=== PATIENT | female | born 1985 | race Caucasian/White ===

== ENCOUNTER 2019-12-26 11:14 | Outpatient (REF) | payer OTHER, SELFPAY | END 2019-12-26 11:15 | disposition home or self-care (01) | LOC: HO.LAB 11:14 | PROVIDERS: PCP Student in an Organized Health Care Education/Training Program; Visit Provider Internal Medicine | DX: Z20.828 Contact with and (suspected) exposure to other viral communicable diseases (principal) | CPT/HCPCS: 87635 ==

== ENCOUNTER 2020-06-18 13:00 | Emergency (ER) | payer MEDICAID, SELFPAY ==
--- NOTE | ~2020-06-18 | XR_ITS ---
EXAMINATION: XR CHEST CLINICAL INFORMATION: Shortness of breath; chest tightness COMPARISON: Chest radiographs 11/20/2018, 10/03/2017 TECHNIQUE: 2 views of the chest were obtained. FINDINGS: The lungs are clear. There is no airspace consolidation, pneumothorax, pleural reaction, or effusion. The costophrenic sulci are clear. The heart is normal in size. The vascularity is normal. The hilar and mediastinal contours and visualized bony structures are unremarkable. XR/XR chest 2V IMPRESSION: Unremarkable examination.
--- NOTE | 2020-06-18 13:30 | ED.GENADULT ---
HPI - General Adult General Stated complaint: anxiety Time Seen by Provider: 06/18/20 13:30 Related Data Allergies Allergy/AdvReac Type Severity Reaction Status Date / Time From VICODIN Allergy Mild RASH Uncoded 11/14/19 15:29 GRAPE SODA Allergy Unknown FACIAL Uncoded 11/14/19 15:29 SWELLING Course Course Course Narrative: 1330-This is a rapid medical exam. 34 yo female here with dry cough x 1 week, chest tightness, shortness of breath. Tested last week twice negative for COVID 19. HD stable. Deferred additional HPI, ROS, PE to primary provider.
[2020-06-18 13:31] VITALS: BP 163/89; PULSE 90; RESP 18; TEMP 36.5; O2SAT 98; BMI 28.3
--- NOTE | 2020-06-18 16:31 | PC.NURSE ---
DR HAWLEY CANCELING EKG.
--- NOTE | 2020-06-18 16:32 | ED_ITS ---
HPI - URI/Sore Throat General Chief Complaint: Upper Respiratory Symptoms Stated Complaint: anxiety Time Seen by Provider: 06/18/20 13:30 Source: patient Mode of arrival: ambulatory Limitations: no limitations History of Present Illness HPI Narrative: 34-year-old female presented for evaluation of cough for 1 week. 34-year-old female came in for evaluation productive cough for the past week, with mild difficulty breathing, patient had the COVID infection 4 months ago and had a recent negative testing last week, complaining of chest tightness with wheezing and difficulty breathing with productive cough of yellow sputum. Patient is smoker. No sick contact. Related Data Previous Rx's Medication Instructions Recorded albuterol sulfate [ProAir HFA] 1 inh INHALATION QID PRN #8.5 g 06/18/20 azithromycin [Zithromax Z-Osman] See Rx Instructions .ROUTE 06/18/20 .COMPLEX #6 tab prednisone 20 mg PO BID #10 tab 06/18/20 Allergies Allergy/AdvReac Type Severity Reaction Status Date / Time From VICODIN Allergy Mild RASH Uncoded 11/14/19 15:29 GRAPE SODA Allergy Unknown FACIAL Uncoded 11/14/19 15:29 SWELLING Review of Systems Review of Systems: All other systems are reviewed and are negative Constitutional: Reports as per HPI and Reports no additional constitutional complaints Eyes: Reports as per HPI and Reports no additional eye complaints Reports system reviewed and no additional complaints, except as documented Cardiovascular: Reports as per HPI and Reports no additional cardiovascular complaints Respiratory: Reports as per HPI and Reports no additional respiratory complaints Gastrointestinal: Reports as per HPI and Reports no additional gastrointestinal complaints Genitourinary: Reports no additional female genitourinary complaints Musculoskeletal: Reports no additional musculoskeletal complaints Skin/Breast: Reports system reviewed and no additional complaints, except as docu Psychiatric: Reports no additional psychiatric complaints Endocrine: Reports no additional endocrine complaints Hematologic/Lymphatic: Reports no additional hematologic/lymphatic complaints Allergic/Immunologic: Reports no additional allergic/immunologic complaints Reports system reviewed and no additional complaints, except as documented and Reports Abnormal speech present [facility] Past Medical History Medical History Anxiety Ectopic HTN (hypertension) Social History Social History Advance Directives: No Advance Directives Information Provided: No Physical Exam Vital Signs: Vital Signs: Last Vital Signs Temp 97.7 F 06/18/20 13:31 Pulse 90 06/18/20 13:31 Resp 18 06/18/20 13:31 BP 163/89 H 06/18/20 13:31 Pulse Ox 98 06/18/20 13:31 Body Mass Index 28.3 Vital signs have been reviewed as appeared to be correct. Blood pressure elevated. Heart rate normal. Respiration rate normal. Temperature normal. Oxygen saturation normal. Appearance: Alert. Oriented X3. No acute distress. Head: Normal external exam. Normocephalic. Atraumatic. No Guzman signs noted. No raccoon eyes noted Eyes: PERRLA. EOMI. Conjunctiva and sclera normal. Eyelids normal. ENT: TM's Normal. Pharynx normal. Uvula midline. Moist mucous membranes. No trismus noted. No drooling noted. No muffled voice noted. Neck: Normal inspection. Neck supple. FROM. No adenopathy. Thyroid Normal. No meningeal signs. No neck mass noted. CVS: Normal heart rate and rhythm. Heart sound normal. No murmurs noted. Pulses normal throughout. Respiratory: No respiratory distress. Painless inspiration. Breath sounds normal. Diffuse expiratory wheezes, no rales, or rhonchi noted. Chest nontender. No accessory muscle usage noted or decreased air movement noted. Abdomen: Soft and nontender. Bowel sounds normal in all 4 quadrants. No distention noted. No organomegaly noted. No visible injury noted. Back: No CVA tenderness. Full range of motion noted. Skin: Skin warm and dry. Normal skin color. Normal skin turgor. No rashes/lesions/lacerations noted. Extremities: No lower extremity edema. Extremities exhibit normal range of motion. Extremities nontender. Neuro: Oriented X 3. No motor deficit. No sensory deficit. Reflexes normal. Course Course Course Narrative: Assessment and plan. 34-year-old female smoker who presented with 7 days of coughing and wheezing. Exam and chest x-ray are suggesting acute bronchitis. Will start patient on a Zithromax, prednisone, bronchodilator. MDM - URI/Sore Throat Imaging Data Chest x-ray: Radiologist's impression: No acute pathology. Discharge Plan Discharge Clinical Impression: Bronchitis Patient Disposition: Home, Self-Care Instructions: Acute Bronchitis (ED) Prescriptions: New prednisone 20 mg tablet 20 mg PO BID Qty: 10 RF: 0 azithromycin [Zithromax Z-Osman] 250 mg tablet See Rx Instructions .ROUTE .COMPLEX Qty: 6 RF: 0 albuterol sulfate [ProAir HFA] 90 mcg/actuation HFA aerosol inhaler 1 inh inhalation QID PRN (Reason: shortness of breath or wheezing) Qty: 8.5 RF: 0 Referrals: Jeannie Figueredo MD [Primary Care Provider] - 2 days
[2020-06-18 17:05] LABS: COVID-19 Test Negative (Negative); IDNOW Serial# 9DD0AD1C
[2020-06-18] MEDS: predniSONE 20 MG TABLET 40 MG PO (17:12)
== END 2020-06-18 17:20 | disposition home or self-care (01) ==
PROVIDERS: Emergency Provider Emergency Medicine; PCP Student in an Organized Health Care Education/Training Program
DX: J20.8 Acute bronchitis due to other specified organisms (principal); R06.02 Shortness of breath; R05 Cough; F41.1 Generalized anxiety disorder; F43.0 Acute stress reaction; I10 Essential (primary) hypertension; Z20.822 Contact with and (suspected) exposure to COVID-19; Z79.899 Other long term (current) drug therapy
CPT/HCPCS: 36415; 71046; 87635; 99283

== ENCOUNTER 2020-10-21 11:45 | Outpatient (REF) | payer MEDICAID, SELFPAY ==
[2020-10-21 12:20] LABS: COVID-19 Test Negative (Negative)
== END 2020-10-21 11:46 | disposition home or self-care (01) ==
LOC: HO.LAB 11:45
PROVIDERS: PCP Student in an Organized Health Care Education/Training Program; Visit Provider Internal Medicine
DX: Z20.822 Contact with and (suspected) exposure to COVID-19 (principal)
CPT/HCPCS: 36415; 87635; C9803

== ENCOUNTER 2020-12-06 11:47 | Emergency (ER) | payer MEDICAID, SELFPAY ==
[2020-12-06 12:39] VITALS: BP 132/86; PULSE 85; RESP 16; TEMP 36.3; O2SAT 98; BMI 29.0
--- NOTE | 2020-12-06 13:25 | ED.EAR ---
HPI - Ear Problem General Chief complaint: Ear Problems Stated complaint: headache Source: patient Mode of arrival: ambulatory Limitations: no limitations History of Present Illness HPI Narrative: Patient presents to ED for left ear pain and also wooshing pounding sound in left ear. Patient denies any recent head trauma, nausea, vomiting, blurry vision, eye pain, bleeding from ear, ear discharge, or any other concerning symptoms. MD Complaint: ear pain Related Data Previous Rx's Medication Instructions Recorded albuterol sulfate 90 mcg/actuation 1 inh INHALATION QID PRN #8.5 g 06/18/20 aerosol inhaler (ProAir HFA) azithromycin 250 mg tablet See Rx Instructions .ROUTE 06/18/20 (Zithromax Z-Osman) .COMPLEX #6 tab prednisone 20 mg tablet 20 mg PO BID #10 tab 06/18/20 amoxicillin 875 mg-potassium 1 tab PO Q12H 10 Days #20 tab 12/06/20 clavulanate 125 mg tablet (Augmentin) naproxen 500 mg tablet 500 mg PO BID PRN #20 tab 12/06/20 Allergies Allergy/AdvReac Type Severity Reaction Status Date / Time From VICODIN Allergy Mild RASH Uncoded 12/06/20 12:43 GRAPE SODA Allergy Unknown FACIAL Uncoded 12/06/20 12:43 SWELLING Review of Systems Review of Systems: Yes all other systems are reviewed and are negative Constitutional: Constitutional: Reports as per HPI and Reports no additional constitutional complaints Eyes: Eyes: Reports as per HPI and Reports no additional eye complaints ENT: Reports system reviewed and no additional complaints, except as documented, Reports as per HPI and Reports otalgia Cardiovascular: Cardiovascular: Reports as per HPI and Reports no additional cardiovascular complaints Respiratory: Respiratory: Reports as per HPI and Reports no additional respiratory complaints Gastrointestinal: Gastrointestinal: Reports as per HPI and Reports no additional gastrointestinal complaints Genitourinary: Genitourinary: Reports no additional female genitourinary complaints and Reports as per HPI Musculoskeletal: Musculoskeletal: Reports no additional musculoskeletal complaints and Reports as per HPI Neurologic: Reports system reviewed and no additional complaints, except as documented and Reports as per HPI Psychiatric: Psychiatric: Reports no additional psychiatric complaints and Reports as per HPI PMFSH Past Medical History Medical History Anxiety Ectopic HTN (hypertension) Social History Social History Advance Directives: No Advance Directives Information Provided: No Patient : No Physical Exam Vital Signs: Vital Signs: Last Vital Signs Temp 97.4 F 12/06/20 12:39 Pulse 70 12/06/20 13:47 Resp 18 12/06/20 13:47 BP 132/86 12/06/20 12:39 Pulse Ox 98 12/06/20 12:39 Body Mass Index 29.0 Const: General: cooperative, healthy appearing, comfortable, no acute distress, well developed, alert, awake and Physically active Orientation/consciousness: patient oriented x3 HENMT: Head: Yes normal to inspection, Yes No palpable skull fracture present, Yes normocephalic, Yes atraumatic and No abrasion Ears: hearing grossly normal bilaterally, external ears normal and TM abnormal (left ear) bulging Eyes: General: appearance normal, both eyes and all related structures Neck: Neck: Yes normal visual inspection, Yes full ROM, Yes no lymphadenopathy, Yes no meningeal signs, Yes trachea midline, Yes supple and No tender Chest: Chest palpation & inspection: normal inspection of the chest and normal palpation of entire chest wall Resp: Effort & Inspection: normal respiratory effort and able to speak in complete sentences Auscultation: clear to auscultation bilaterally Cardio: Jugular venous distension: no JVD Heart sounds: S1 normal heart sound present and S2 normal heart sound present GI: Inspection: Yes normal to inspection and No abdominal wall ecchymosis Palpation (GI): Soft to palpation, not firm, nontender, no guarding and not rigid : General: No CVA tenderness and Yes no CVA tenderness Back/Spine/Pelvis: Back: no CVA tenderness, No CVA tenderness and No back tenderness Skin: General skin exam: no rashes or lesions noted and elasticity normal Neuro: General: patient oriented x3, gait normal, no meningeal signs and CN's II-XI intact bilaterally Cranial nerves: Yes CN's II-XII intact bilaterally Extrem: General: Yes normal to inspection and Yes full ROM Psych: Appearance: grossly normal, well kempt and not disheveled Course Course Course Narrative: Evaluation for Reevaluation(s) Reevaluation #1: Patient will be discharged with antibiotic and NSAIDs. Patient informed to follow-up with ENT. Time: 13:34 MDM - Ear MDM Narrative Medical decision making narrative: Otitis media. Middle ear effusion Discharge Plan Discharge Clinical Impression: Otitis media, TASHA (middle ear effusion) Patient Disposition: Home, Self-Care Instructions: Ear Infection (ED), Serous Otitis Media (ED) Additional Instructions: History and physical exam indicate middle ear effusion most likely caused by infection. You need to follow-up with ENT specialist. Return to the ED for worsening ear pain, ear drainage, severe headache, eye pain, blurry vision, loss of vision, nausea, vomiting, headache, fever, chills, neck pain, swelling or redness behind our front of the ear, or any other concerning symptoms. Prescriptions: New amoxicillin-pot clavulanate [Augmentin] 875-125 mg tablet 1 tab PO Q12H 10 Days Qty: 20 RF: 0 naproxen 500 mg tablet 500 mg PO BID PRN (Reason: pain) Qty: 20 RF: 0 No Action prednisone 20 mg tablet 20 mg PO BID Qty: 10 RF: 0 azithromycin [Zithromax Z-Osman] 250 mg tablet See Rx Instructions .ROUTE .COMPLEX Qty: 6 RF: 0 albuterol sulfate [ProAir HFA] 90 mcg/actuation HFA aerosol inhaler 1 inh inhalation QID PRN (Reason: shortness of breath or wheezing) Qty: 8.5 RF: 0 Referrals: Richie Ugarte [Physician] - 2 days Stand Alone Forms: Work/School Release Interventions: ED Discharge Assessment Last Done: 12/06/20 14:09 Discharge Date/Time: 12/06/20 14:10 Print Language: Arabic
[2020-12-06] MEDS: Ibuprofen 800 MG TABLET PO (13:46)
[2020-12-06 13:47] VITALS: PULSE 70; RESP 18
--- NOTE | 2020-12-06 14:06 | PC.NURSE ---
PT EVALUATED BY PA. PT AWAKE, ALERT AND ORIENTED X 3. SKIN WARM AND DRY. RESP UNLABORED. DENIES N/V. C/O EAR PAIN. AIRWAY PATENT, MANAGING SECRETIONS, NO ACUTE DISTRESS NOTED. PLAN IS FOR DC HOME AND PATIENT AGREEABLE
== END 2020-12-06 14:10 | disposition home or self-care (01) ==
PROVIDERS: Emergency Provider Emergency Medicine; PCP Student in an Organized Health Care Education/Training Program
DX: H66.92 Otitis media, unspecified, left ear (principal); H74.8X2 Other specified disorders of left middle ear and mastoid; I10 Essential (primary) hypertension
CPT/HCPCS: 99283

== ENCOUNTER 2021-06-07 13:10 | Emergency (ER) | payer MEDICAID, SELFPAY ==
--- NOTE | ~2021-06-07 | XR_ITS ---
EXAMINATION: XR CHEST CLINICAL INFORMATION: Chest pain COMPARISON: Previous x-ray May 2020 TECHNIQUE: Frontal view of the chest was obtained. FINDINGS: No significant abnormality is noted involving the heart, lungs, mediastinum, bony thorax or soft tissues. XR/XR chest 1V IMPRESSION: Unremarkable examination.
--- NOTE | 2021-06-07 13:15 | ECG_ITS ---
Test Reason : CP Blood Pressure : / mmHG Vent. Rate : 091 BPM Atrial Rate : 091 BPM P-R Int : 134 ms QRS Dur : 092 ms QT Int : 384 ms P-R-T Axes : 031 -05 014 degrees QTc Int : 472 ms Normal sinus rhythm Moderate voltage criteria for LVH, may be normal variant ( R in aVL , [place] product ) Borderline ECG When compared with ECG of 20-NOV-2018 03:06, No significant change was found Referred By: Generic ED Physician Electronically Signed By:Zander Stubbs
[2021-06-07 13:51] VITALS: BP 135/96; PULSE 79; RESP 16; TEMP 36; O2SAT 100; BMI 28.3
[2021-06-07 14:11] LABS: MANUAL DIFF FLAG NO
[2021-06-07 14:15] LABS: Basophils Percent Auto 0.3 % (0-2); Eosinophils Absolute Auto 0.2 X10*3/uL (0.0-0.4); Eosinophils Percent Auto 2.3 % (0-4); Hematocrit 33.7 % (37.0-47.0); Hemoglobin 10.4 g/dl (12.0-16.0); Imm Gran Abs Auto 0.03 X10*3/uL (0.00-0.03); Imm Gran Pct Auto 0.4 % (0.0-0.4); Lymphocytes Absolute Auto 2.7 X10*3/uL (1.2-4.9); Lymphocytes Percent Auto 36.6 % (20-40); Mean Corpuscular HGB Conc 30.9 g/dl (31.0-35.0); Mean Corpuscular Hemoglobin 23.6 pg (27.0-33.0); Mean Corpuscular Volume 76.4 fL (80.0-98.0); Mean Platelet Volume 9.5 fL (9.4-12.3); Monocytes Absolute Auto 0.5 X10*3/uL (0.1-1.2); Monocytes Percent Auto 6.5 % (2-11); Neutrophils Absolute Auto 3.9 x10*3/uL (2.0-8.3); Neutrophils Percent Auto 53.9 % (45-73); Platelet Count 436 X10*3/uL (160-400); Red Blood Count 4.41 X10*6/uL (4.20-5.50); Red Cell Distribution Width 15.8 % (11.0-16.0); White Blood Count 7.3 X10*3/uL (4.8-10.8)
[2021-06-07 14:28] LABS: Anion Gap 11 (12-20); Blood Urea Nitrogen 11 mg/dL (9-16); Calcium 9.9 mg/dL (8.4-10.2); Carbon Dioxide 27 mmol/L (22-29); Chloride 105 mmol/L (96-108); Creatinine Clr Calc Pharmacy 96.6; Estimated Glomerular Filt Rate > 60; Glucose Random 88 mg/dL (60-115); Potassium 3.8 mmol/L (3.3-5.1); Sodium 139 mmol/L (135-145)
[2021-06-07 14:35] LABS: Troponin-I High Sensitivity 7.6 ng/L (<3.5-17.0)
--- NOTE | 2021-06-07 16:20 | ED_ITS ---
HPI - Chest Pain General Chief Complaint: Chest Pain Stated Complaint: chest pain Time Seen by Provider: 06/07/21 15:05 Source: patient Mode of arrival: ambulatory Limitations: no limitations History of Present Illness HPI narrative: Patient no known coronary artery disease history of hypertension works in double shifts since yesterday evening noticed pain the mid chest the neck the left shoulder increases on palpation and movements of her arms no diaphoresis no nausea no palpitation pain is dull aching pain patient has not received COVID vaccine no cold symptoms complaining of body aches Related Data Previous Rx's Medication Instructions Recorded albuterol sulfate 90 mcg/actuation 1 inh INHALATION QID PRN #8.5 g 06/18/20 aerosol inhaler (ProAir HFA) azithromycin 250 mg tablet See Rx Instructions .ROUTE 06/18/20 (Zithromax Z-Osman) .COMPLEX #6 tab prednisone 20 mg tablet 20 mg PO BID #10 tab 06/18/20 amoxicillin 875 mg-potassium 1 tab PO Q12H 10 Days #20 tab 12/06/20 clavulanate 125 mg tablet (Augmentin) naproxen 500 mg tablet 500 mg PO BID PRN #20 tab 12/06/20 Allergies Allergy/AdvReac Type Severity Reaction Status Date / Time From VICODIN Allergy Mild RASH Uncoded 12/06/20 12:43 GRAPE SODA Allergy Unknown FACIAL Uncoded 12/06/20 12:43 SWELLING Review of Systems Review of Systems: Yes all other systems are reviewed and are negative [facility] Past Medical History Medical History Anxiety Ectopic HTN (hypertension) Social History Social History Advance Directives: No Advance Directives Information Provided: No Patient : No Physical Exam Vital Signs: Vital Signs: Last Vital Signs Temp 98.5 F 06/07/21 16:43 Pulse 68 06/07/21 16:43 Resp 15 06/07/21 16:43 BP 123/80 06/07/21 16:43 Pulse Ox 98 06/07/21 16:43 BMI result Body Mass Index 28.3 Appearance: Alert. Oriented X3. No acute distress. ENT: Pharynx normal. Oral Mucosa moist Neck: Normal inspection. Neck supple. CVS: Normal heart rate and rhythm. Pulses normal. Respiratory: No respiratory distress. Equal air entry bilateral, no wheezing/rales/rhonchi diffuse muscular tenderness left side of the neck and mid chest Abdomen: Soft and nontender. Bowel sounds are present, no mass palpable, no CVA tenderness Skin: Skin warm and dry. Normal skin color. Normal skin turgor. Extremities: No lower extremity edema. No calf tenderness Neuro: Oriented X 3. MDM - Chest Pain MDM Narrative Medical decision making narrative: Patient with atypical chest pain and since yesterday worse on movement and palpation likely musculoskeletal pain without any ischemic change no history of coronary artery disease heart score of 1 vital stable will discharge patient home advised to follow with PCP Lab Data Attestation: I reviewed the patient's lab results. Result diagrams: 06/07/21 14:05 06/07/21 14:05 Labs: Lab Results 06/07/21 06/07/21 06/07/21 Range/Units 14:05 14:05 14:05 WBC 7.3 (4.8-10.8) X10*3/uL RBC 4.41 (4.20-5.50) X10*6/uL Hgb 10.4 L (12.0-16.0) g/dl Hct 33.7 L (37.0-47.0) % MCV 76.4 L (80.0-98.0) fL MCH 23.6 L (27.0-33.0) pg MCHC 30.9 L (31.0-35.0) g/dl RDW 15.8 (11.0-16.0) % Plt Count 436 H (160-400) X10*3/uL MPV 9.5 (9.4-12.3) fL Immature Gran % (Auto) 0.4 (0.0-0.4) % Neut % (Auto) 53.9 (45-73) % Lymph % (Auto) 36.6 (20-40) % Treasure % (Auto) 6.5 (2-11) % Eos % (Auto) 2.3 (0-4) % Baso % (Auto) 0.3 (0-2) % Lymph # (Auto) 2.7 (1.2-4.9) X10*3/uL Treasure # (Auto) 0.5 (0.1-1.2) X10*3/uL Eos # (Auto) 0.2 (0.0-0.4) X10*3/uL Baso # (Auto) 0.0 (0.0-0.2) X10*3/uL Abs Immat Gran (auto) 0.03 (0.00-0.03) X10*3/uL Absolute Neuts (auto) 3.9 (2.0-8.3) x10*3/uL Absolute Nucleated RBC 0.000 (0.0-0.012) X10*3/uL Nucleated RBC % (auto) 0.0 (0.0-0.2) /100WBC Sodium 139 (135-145) mmol/L Potassium 3.8 (3.3-5.1) mmol/L Chloride 105 (96-108) mmol/L Carbon Dioxide 27 (22-29) mmol/L Anion Gap 11 L (12-20) BUN 11 (9-16) mg/dL Creatinine 0.79 (0.5-1.4) mg/dL Estim Creat Clear Calc 96.6 Estimated GFR > 60 Random Glucose 88 (60-115) mg/dL Calcium 9.9 (8.4-10.2) mg/dL Troponin I High Sens 7.6 (<3.5-17.0) ng/L Scores Heart Score History: -0- slightly suspicious ECG: -0- normal Age: -0- < or = 45 Risk factory: -1- 1 or 2 risk factors Troponin: -0- < or = normal limit Score: 1 Risk: 1.7% Discharge Plan Discharge Clinical Impression: Chest pain Patient Disposition: Home, Self-Care Instructions: Chest Pain (ED) Additional Instructions: Likely have musculoskeletal chest pain Take ibuprofen for pain Follow with PCP if chest pain continues Prescriptions: No Action prednisone 20 mg tablet 20 mg PO BID Qty: 10 0RF azithromycin [Zithromax Z-Osman] 250 mg tablet See Rx Instructions .ROUTE .COMPLEX Qty: 6 0RF Rx Instructions: take 500 mg today (day 1), then 250 mg for 4 days (days 2-5) albuterol sulfate [ProAir HFA] 90 mcg/actuation HFA aerosol inhaler 1 inh inhalation QID PRN (Reason: shortness of breath or wheezing) Qty: 8.5 0RF amoxicillin-pot clavulanate [Augmentin] 875-125 mg tablet 1 tab PO Q12H 10 Days Qty: 20 0RF naproxen 500 mg tablet 500 mg PO BID PRN (Reason: pain) Qty: 20 0RF
[2021-06-07 16:43] VITALS: BP 123/80; PULSE 68; RESP 15; TEMP 36.9; O2SAT 98
[2021-06-07] MEDS: Ibuprofen 600 MG TABLET PO (16:51)
[2021-06-07 17:07] LABS: IDNOW Serial# 16C4AD1C
[2021-06-07 17:08] LABS: COVID-19 Test Negative (Negative)
== END 2021-06-07 17:10 | disposition home or self-care (01) ==
PROVIDERS: Emergency Provider Internal Medicine; PCP Student in an Organized Health Care Education/Training Program
DX: R07.9 Chest pain, unspecified (principal); Z20.822 Contact with and (suspected) exposure to COVID-19; I10 Essential (primary) hypertension; F41.9 Anxiety disorder, unspecified; Z79.899 Other long term (current) drug therapy
CPT/HCPCS: 36415; 71045; 80048; 84484; 85025; 87635; 93005; 99283; 99284

== ENCOUNTER 2021-12-16 07:02 | Emergency (ER) | payer MEDICAID, SELFPAY ==
[2021-12-16 07:59] LABS: Strep A Nucleic Acid Negative (Negative)
[2021-12-16 08:08] VITALS: BP 123/73; PULSE 74; RESP 18; TEMP 37.1; O2SAT 99; BMI 28.4
[2021-12-16 09:14] LABS: Influenza A PCR NEGATIVE (Negative); Influenza B PCR NEGATIVE (Negative); Resp Syncy Virus RNA Qual PCR NEGATIVE (Negative); SARS COV2 PCR INHOUSE NEGATIVE (Negative)
--- NOTE | 2021-12-16 09:33 | ED.URI ---
HPI - URI/Sore Throat General Chief Complaint: Ear Problems Stated Complaint: Sore Throat Ear Pain Time Seen by Provider: 12/16/21 08:19 Source: patient Mode of arrival: ambulatory Limitations: no limitations History of Present Illness HPI Narrative: Patient presents emergency department for evaluation of sore throat and left ear pain. Onset of symptoms was yesterday. Described as constant and aching. Reports that she typically gets this at least once a year. Which response to antibiotics. Denies associated fevers, chills, nasal congestion, cough, shortness of breath, difficulty breathing, chest pain, palpitations. Denies any known sick contacts. Related Data Previous Rx's Medication Instructions Recorded albuterol sulfate 90 mcg/actuation 1 inh inhalation QID PRN shortness 06/18/20 aerosol inhaler (ProAir HFA) of breath or wheezing #8.5 grams azithromycin 250 mg tablet See Rx Instructions PO .COMPLEX #6 06/18/20 (Zithromax Z-Osman) tabs prednisone 20 mg tablet 20 mg PO BID #10 tabs 06/18/20 amoxicillin 875 mg-potassium 1 tab PO Q12H 10 days #20 tabs 12/06/20 clavulanate 125 mg tablet (Augmentin) naproxen 500 mg tablet 500 mg PO BID PRN pain #20 tabs 12/06/20 amoxicillin 500 mg tablet 500 mg PO Q12H 10 days #20 tabs 12/16/21 Allergies Allergy/AdvReac Type Severity Reaction Status Date / Time From VICODIN Allergy Mild RASH Uncoded 12/06/20 12:43 GRAPE SODA Allergy Unknown FACIAL Uncoded 12/06/20 12:43 SWELLING Review of Systems Review of Systems: Constitutional: No fever. No chills. No weakness. Positive fatigue. ENT/ Mouth: Positive Ear Pain, no Nasal Congestion, positive sore throat, No Rhinorrhea, No Swallowing Difficulty Skin: No rash or itching. Cardiovascular: No chest pain. No palpitations. Respiratory: No shortness of breath. Positive cough. No sputum production. Gastrointestinal: No nausea. No vomiting. No diarrhea. No abdominal pain. Genitourinary: No burning micturition. No urinary frequency. Neurologic: No headache. No dizziness. No syncope. No numbness or tingling in the extremities. Musculoskeletal: No muscle pain. No back pain. No joint pain or stiffness. Yes all other systems are reviewed and are negative [facility] Past Medical History Attestation statement: The following information was validated with the patient. Source: old records reviewed Medical History Anxiety Ectopic HTN (hypertension) Social History Social History Advance Directives: No Advance Directives Information Provided: No Physical Exam Vital Signs: Vital Signs: Last Vital Signs Temp 98.7 F 12/16/21 08:08 Pulse 74 12/16/21 08:08 Resp 18 12/16/21 08:08 BP 123/73 12/16/21 08:08 Pulse Ox 99 12/16/21 08:08 O2 Del Method 12/16/21 08:08 BMI result Body Mass Index 28.4 Vital signs have been reviewed as normal and appeared to be correct. Blood pressure normal.? Heart rate normal.? Respiration rate normal. Temperature normal.? Oxygen saturation normal. Appearance: Alert.?Oriented to person, place and time. No acute distress.?Normal affect. Eyes: Pupils equal, round and reactive to light.? ENT: TM normal bilaterally. Pharynx with erythema, no exudate, tonsillar hypertrophy bilaterally? Neck: Normal inspection.? Neck supple.??Positive cervical adenopathy CVS: Heart sounds normal. Normal heart rate and rhythm.? Pulses normal.?? Respiratory: No respiratory distress.? Lung sounds clear to auscultation bilaterally?? Abdomen: Soft and non-tender. Normoactive bowel sounds. Skin: Skin warm and dry.? Normal skin color.? ? Extremities: No lower extremity edema.? Neuro: Moves all extremities spontaneously. Sensation intact bilaterally. No motor deficits. Ambulates with normal steady gait. Course Course Course Narrative: Patient is a 36-year-old female presenting for evaluation of ear pain and sore throat. COVID-19 testing negative. Influenza testing negative. RSV testing negative. Strep 3rd testing negative At this time history and physical exam not consistent with AOM/PE/pneumonia. Well-appearing, nontoxic, afebrile, no tachycardia or tachypnea/hypoxia. Speaking clear full sentences, ambulatory with steady gait. Patient received Decadron 10 mg orally in the emergency department. Discussed conservative treatment including rest, hydration, Tylenol/ibuprofen as needed for fever and body aches, saline nasal spray, humidifier, liei-aei-enyztga cold medication, and amoxicillin for pharyngitis. Advised to follow-up with primary care provider as needed, discussed reasons to return back to the emergency department. All questions were answered. Patient discharged home in stable condition. MDM - URI/Sore Throat Medical Records Attestation: I reviewed the patient's medical records. Lab Data Attestation: I reviewed the patient's lab results. Labs: Lab Results 12/16/21 12/16/21 Range/Units 07:41 08:19 Influenza Type A (PCR) NEGATIVE (Negative) Influenza Type B (PCR) NEGATIVE (Negative) RSV RNA Qual (PCR) NEGATIVE (Negative) SARS-CoV-2 RNA (RT-PCR) NEGATIVE (Negative) S. pyogenes GrpA NING Negative (Negative) Discharge Plan Discharge Clinical Impression: Pharyngitis Patient Disposition: Home, Self-Care Instructions: Pharyngitis (ED) Additional Instructions: As we discussed, your testing for strep throat today was negative, your testing for COVID, influenza, and RSV were also all negative. You have been given a prescription for amoxicillin to take twice daily for 10 days. Please complete this entire course. Be sure to rest, stay well hydrated drinking plenty of fluids, eat small frequent meals. Tylenol/ibuprofen can be used as needed for fever/pain. Vkux-zaz-afppzld cold medications may be helpful as well for symptoms, use of a humidifier. You may return to the emergency department with any new or worsening symptoms or concerns. Follow-up with your primary care provider as needed. Prescriptions: New amoxicillin 500 mg tablet 500 mg PO Q12H 10 Days Qty: 20 0RF No Action prednisone 20 mg tablet 20 mg PO BID Qty: 10 0RF azithromycin [Zithromax Z-Osman] 250 mg tablet See Rx Instructions .ROUTE .COMPLEX Qty: 6 0RF Rx Instructions: take 500 mg today (day 1), then 250 mg for 4 days (days 2-5) albuterol sulfate [ProAir HFA] 90 mcg/actuation HFA aerosol inhaler 1 inh inhalation QID PRN (Reason: shortness of breath or wheezing) Qty: 8.5 0RF amoxicillin-pot clavulanate [Augmentin] 875-125 mg tablet 1 tab PO Q12H 10 Days Qty: 20 0RF naproxen 500 mg tablet 500 mg PO BID PRN (Reason: pain) Qty: 20 0RF Stand Alone Forms: Work/School Release Discharge Date/Time: 12/16/21 10:38
[2021-12-16] MEDS: dexAMETHasone sod phosphate 10 MG/ML VIAL PO (09:51)
== END 2021-12-16 10:38 | disposition home or self-care (01) ==
PROVIDERS: Emergency Medicine; Emergency Provider Emergency Medicine; PCP Student in an Organized Health Care Education/Training Program
DX: J02.9 Acute pharyngitis, unspecified (principal); H92.02 Otalgia, left ear; Z79.899 Other long term (current) drug therapy; Z20.822 Contact with and (suspected) exposure to COVID-19
CPT/HCPCS: 0241U; 36415; 87651; 99281; 99283; J1100

== ENCOUNTER 2021-12-20 23:21 | Outpatient (REF) | payer MEDICAID, SELFPAY ==
[2021-12-20 23:50] LABS: COVID-19 Test Negative (Negative)
== END 2021-12-20 23:22 | disposition home or self-care (01) ==
LOC: HO.LAB 23:21
PROVIDERS: Visit Provider Internal Medicine
DX: Z20.822 Contact with and (suspected) exposure to COVID-19 (principal)
CPT/HCPCS: 87635

== ENCOUNTER 2022-03-24 04:54 | Emergency (ER) | payer MEDICAID, SELFPAY ==
[2022-03-24 04:59] VITALS: BP 140/91; PULSE 89; RESP 20; TEMP 36.2; O2SAT 98; BMI 29.2
[2022-03-24 05:02] VITALS: BP 128/79; PULSE 92; RESP 17; TEMP 36.8; O2SAT 99
--- NOTE | 2022-03-24 05:10 | PC.NURSE ---
PT A&Ox4, reports being at work at feeling dizzy, flushed, and hot feeling all of a sudden. Denies any pain, CP, or headache. VSS. Lab work collected and sent to lab.
[2022-03-24 05:39] LABS: Basophils Percent Auto 0.2 % (0-2); Eosinophils Absolute Auto 0.2 X10*3/uL (0.0-0.4); Eosinophils Percent Auto 3.3 % (0-4); Hemoglobin 9.9 g/dl (12.0-16.0); Imm Gran Abs Auto 0.02 X10*3/uL (0.00-0.03); Imm Gran Pct Auto 0.3 % (0.0-0.4); Lymphocytes Absolute Auto 2.6 X10*3/uL (1.2-4.9); Lymphocytes Percent Auto 40.5 % (20-40); MANUAL DIFF FLAG NO; Mean Corpuscular HGB Conc 31.9 g/dl (31.0-35.0); Mean Corpuscular Hemoglobin 23.9 pg (27.0-33.0); Mean Corpuscular Volume 74.9 fL (80.0-98.0); Mean Platelet Volume 9.8 fL (9.4-12.3); Monocytes Absolute Auto 0.5 X10*3/uL (0.1-1.2); Neutrophils Percent Auto 47.7 % (45-73); Platelet Count 381 X10*3/uL (160-400); Red Blood Count 4.14 X10*6/uL (4.20-5.50); Red Cell Distribution Width 15.9 % (11.0-16.0); White Blood Count 6.4 X10*3/uL (4.8-10.8)
--- NOTE | 2022-03-24 05:39 | ED.GENADULT ---
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 Time Seen by Provider: 03/24/22 05:39 History of Present Illness HPI narrative: patient with history of hypertension was working felt flushed and lightheaded blood pressure 140/91 repeat blood pressure 128/79 patient takes hydrochlorothiazide 12.5 mg daily was at work fell slightly hot check the blood pressure 160/ 94 when arrived in the ER blood pressure improved patient denied any chest pain or palpitation no history of coronary artery disease Related Data Previous Rx's Medication Instructions Recorded albuterol sulfate 90 mcg/actuation 1 inh inhalation QID PRN shortness 06/18/20 aerosol inhaler (ProAir HFA) of breath or wheezing #8.5 grams azithromycin 250 mg tablet See Rx Instructions PO .COMPLEX #6 06/18/20 (Zithromax Z-Osman) tabs prednisone 20 mg tablet 20 mg PO BID #10 tabs 06/18/20 amoxicillin 875 mg-potassium 1 tab PO Q12H 10 days #20 tabs 12/06/20 clavulanate 125 mg tablet (Augmentin) naproxen 500 mg tablet 500 mg PO BID PRN pain #20 tabs 12/06/20 amoxicillin 500 mg tablet 500 mg PO Q12H 10 days #20 tabs 12/16/21 ferrous sulfate 325 mg (65 mg 325 mg PO DAILY #30 tabs 03/24/22 iron) tablet Allergies Allergy/AdvReac Type Severity Reaction Status Date / Time From VICODIN Allergy Mild RASH Uncoded 12/06/20 12:43 GRAPE SODA Allergy Unknown FACIAL Uncoded 12/06/20 12:43 SWELLING Review of Systems Review of Systems: Yes all other systems are reviewed and are negative PMF[facility] Past Medical History Medical History Anxiety Ectopic HTN (hypertension) Social History Social History Alcohol intake: current Alcohol intake frequency: holidays/special occasions only Alcohol type: wine Smoked in Last 30 Days: Yes Use of substances other than those prescribed or required for medical reasons: No Advance Directives: No Patient : No Physical Exam ED Vital Signs: Vital Signs - 24 hr 03/24/22 04:59 03/24/22 05:02 03/24/22 06:00 Temperature 97.2 F 98.3 F Pulse Rate 89 92 82 Respiratory Rate 20 17 18 Blood Pressure 140/91 H 128/79 138/92 H Pulse Oximetry 98 99 98 Oxygen Delivery Method Room Air Room Air Room Air BMI result Body Mass Index 29.2 Appearance: Alert. Oriented X3. No acute distress. Eyes: pallor+ ENT: Pharynx normal. Oral Mucosa moist Neck: Normal inspection. Neck supple. CVS: Normal heart rate and rhythm. Pulses normal. Respiratory: No respiratory distress. Equal air entry bilateral, no wheezing/rales/rhonchi Abdomen: Soft and nontender. Bowel sounds are present, no mass palpable, no CVA tenderness Skin: Skin warm and dry. Normal skin color. Normal skin turgor. Extremities: No lower extremity edema. No calf tenderness Neuro: Oriented X 3. 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 03/24/22 05:33 03/24/22 05:33 Labs: Lab Results 03/24/22 03/24/22 03/24/22 Range/Units 05:33 05:33 05:33 WBC 6.4 (4.8-10.8) X10*3/uL RBC 4.14 L (4.20-5.50) X10*6/uL Hgb 9.9 L (12.0-16.0) g/dl Hct 31.0 L (37.0-47.0) % MCV 74.9 L (80.0-98.0) fL MCH 23.9 L (27.0-33.0) pg MCHC 31.9 (31.0-35.0) g/dl RDW 15.9 (11.0-16.0) % Plt Count 381 (160-400) X10*3/uL MPV 9.8 (9.4-12.3) fL Immature Gran % (Auto) 0.3 (0.0-0.4) % Neut % (Auto) 47.7 (45-73) % Lymph % (Auto) 40.5 H (20-40) % Jasper % (Auto) 8.0 (2-11) % Eos % (Auto) 3.3 (0-4) % Baso % (Auto) 0.2 (0-2) % Lymph # (Auto) 2.6 (1.2-4.9) X10*3/uL Jasper # (Auto) 0.5 (0.1-1.2) X10*3/uL Eos # (Auto) 0.2 (0.0-0.4) X10*3/uL Baso # (Auto) 0.0 (0.0-0.2) X10*3/uL Abs Immat Gran (auto) 0.02 (0.00-0.03) X10*3/uL Absolute Neuts (auto) 3.0 (2.0-8.3) x10*3/uL Absolute Nucleated RBC 0.000 (0.0-0.012) X10*3/uL Nucleated RBC % (auto) 0.0 (0.0-0.2) /100WBC Sodium 137 (135-145) mmol/L Potassium 3.4 (3.3-5.1) mmol/L Chloride 104 (96-108) mmol/L Carbon Dioxide 23 (22-29) mmol/L Anion Gap 13 (12-20) BUN 13 (9-16) mg/dL Creatinine 0.83 (0.5-1.4) mg/dL Estim Creat Clear Calc 92.3 Estimated GFR > 60 Random Glucose 87 (60-115) mg/dL Calcium 9.0 D (8.4-10.2) mg/dL Total Bilirubin < 0.2 (0.0-1.0) mg/dL AST 22 (5-31) U/L ALT 16 (0-31) U/L Alkaline Phosphatase 78 (39-117) U/L Troponin I High Sens 3.8 (<3.5-17.0) ng/L Total Protein 7.0 (6.5-8.0) g/dL Albumin 3.9 (3.5-5.0) g/dL Independent Interpretation I performed an independent interpretation of an: EKG Interpretation: normal sinus rhythm heart rate 91 beats per minute incomplete right bundle-branch block no acute ST T wave changes no acute ischemia Discharge Plan Discharge Clinical Impression: Hypertension, Chronic iron deficiency anemia Patient Disposition: Home, Self-Care Instructions: Iron Deficiency Anemia (ED), Chronic Hypertension (ED) Additional Instructions: take your blood pressure medications as prescribed take iron tablets as advised follow-up with your PCP Prescriptions: New ferrous sulfate 325 mg (65 mg iron) tablet 325 mg PO DAILY Qty: 30 3RF No Action prednisone 20 mg tablet 20 mg PO BID Qty: 10 0RF azithromycin [Zithromax Z-Osman] 250 mg tablet See Rx Instructions .ROUTE .COMPLEX Qty: 6 0RF Rx Instructions: take 500 mg today (day 1), then 250 mg for 4 days (days 2-5) albuterol sulfate [ProAir HFA] 90 mcg/actuation HFA aerosol inhaler 1 inh inhalation QID PRN (Reason: shortness of breath or wheezing) Qty: 8.5 0RF amoxicillin-pot clavulanate [Augmentin] 875-125 mg tablet 1 tab PO Q12H 10 Days Qty: 20 0RF naproxen 500 mg tablet 500 mg PO BID PRN (Reason: pain) Qty: 20 0RF amoxicillin 500 mg tablet 500 mg PO Q12H 10 Days Qty: 20 0RF
[2022-03-24 06:00] VITALS: BP 138/92; PULSE 82; RESP 18; O2SAT 98
[2022-03-24 06:00] LABS: Alanine Aminotransferase 16 U/L (0-31); Albumin Level 3.9 g/dL (3.5-5.0); Alkaline Phosphatase 78 U/L (39-117); Anion Gap 13 (12-20); Aspartate Amino Transferase 22 U/L (5-31); Bilirubin Total < 0.2 mg/dL (0.0-1.0); Blood Urea Nitrogen 13 mg/dL (9-16); Carbon Dioxide 23 mmol/L (22-29); Chloride 104 mmol/L (96-108); Creatinine Clr Calc Pharmacy 92.3; Estimated Glomerular Filt Rate > 60; Glucose Random 87 mg/dL (60-115); Potassium 3.4 mmol/L (3.3-5.1); Sodium 137 mmol/L (135-145)
--- NOTE | 2022-03-24 06:01 | MHC.EDTECH ---
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
[2022-03-24 06:04] LABS: Troponin-I High Sensitivity 3.8 ng/L (<3.5-17.0)
--- NOTE | 2022-03-24 06:38 | ECG_ITS ---
Test Reason : HIGH BP Blood Pressure : / mmHG Vent. Rate : 091 BPM Atrial Rate : 091 BPM P-R Int : 134 ms QRS Dur : 102 ms QT Int : 378 ms P-R-T Axes : 036 -11 010 degrees QTc Int : 464 ms Normal sinus rhythm Incomplete right bundle branch block Moderate voltage criteria for LVH, may be normal variant ( R in aVL , Lamberto product ) Nonspecific T wave abnormality Prolonged QT Abnormal ECG When compared with ECG of 07-JUN-2021 13:52, Nonspecific T wave abnormality now evident in Anterior leads Referred By: Rome Oh Electronically Signed By:MARBIN TANNER
[2022-03-24 06:55] LABS: Iron 21 mcg/dL (30-160); Percent Iron Saturation 7 % (15-50); Total Iron Binding Capacity 312 mcg/dL (228-428); Unsaturated Iron Binding 291 ug/dL
== END 2022-03-24 06:55 | disposition home or self-care (01) ==
PROVIDERS: Emergency Provider Internal Medicine; PCP Student in an Organized Health Care Education/Training Program
DX: D50.9 Iron deficiency anemia, unspecified (principal); R42 Dizziness and giddiness; I10 Essential (primary) hypertension; Z79.899 Other long term (current) drug therapy
CPT/HCPCS: 36415; 80053; 83540; 84484; 85025; 93005; 99283; 99284

== ENCOUNTER 2022-03-30 07:16 | Outpatient (REF) | payer OTHER, SELFPAY ==
[2022-03-30 08:08] LABS: Influenza A PCR NEGATIVE (Negative); Influenza B PCR NEGATIVE (Negative); Resp Syncy Virus RNA Qual PCR NEGATIVE (Negative); SARS COV2 PCR INHOUSE POSITIVE (Negative)
== END 2022-03-30 07:17 | disposition home or self-care (01) ==
LOC: HO.LAB 07:16
PROVIDERS: Visit Provider Internal Medicine
DX: Z20.822 Contact with and (suspected) exposure to COVID-19 (principal)
CPT/HCPCS: 0241U

== ENCOUNTER 2022-04-03 15:07 | Outpatient (REF) | payer OTHER, SELFPAY ==
[2022-04-03 15:34] LABS: COVID-19 Test Negative (Negative); IDNOW Serial# 16C4AD1C
== END 2022-04-03 15:08 | disposition home or self-care (01) ==
LOC: HO.LAB 15:07
PROVIDERS: PCP Internal Medicine; Visit Provider Internal Medicine
DX: Z20.822 Contact with and (suspected) exposure to COVID-19 (principal)
CPT/HCPCS: 87635

== ENCOUNTER 2023-06-05 06:56 | Emergency (ER) | payer OTHER, SELFPAY ==
--- NOTE | 2023-06-05 07:07 | ED_ITS ---
HPI - General Adult General Chief complaint: Upper Respiratory Symptoms Stated complaint: sore throat Time Seen by Provider: 06/05/23 07:03 Source: patient Mode of arrival: ambulatory Limitations: no limitations History of Present Illness HPI narrative: 37-year-old female without significant medical history presenting to the emergency department 2 days of sore throat, patient reports she has enlarged tonsils at baseline. She reports when this happens she never test positive for strep throat initially, however than requires antibiotics. 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 Denies fevers, chills, difficulty swallowing, drooling, chest pain, shortness of breath, nausea, vomiting, diarrhea, abdominal pain. Related Data Previous Rx's ?Medication ?Instructions ?Recorded albuterol sulfate 90 mcg/actuation 1 inh inhalation QID PRN shortness 06/18/20 aerosol inhaler (ProAir HFA) of breath or wheezing #8.5 grams azithromycin 250 mg tablet See Rx Instructions PO .COMPLEX #6 06/18/20 (Zithromax Z-Osman) tabs prednisone 20 mg tablet 20 mg PO BID #10 tabs 06/18/20 amoxicillin 875 mg-potassium 1 tab PO Q12H 10 days #20 tabs 12/06/20 clavulanate 125 mg tablet (Augmentin) naproxen 500 mg tablet 500 mg PO BID PRN pain #20 tabs 12/06/20 amoxicillin 500 mg tablet 500 mg PO Q12H 10 days #20 tabs 12/16/21 ferrous sulfate 325 mg (65 mg 325 mg PO DAILY #30 tabs 03/24/22 iron) tablet amoxicillin 875 mg-potassium 1 tab PO BID 7 days #14 tabs 06/05/23 clavulanate 125 mg tablet prednisone 20 mg tablet 20 mg PO DAILY 5 days #5 tabs 06/05/23 Allergies Allergy/AdvReac Type Severity Reaction Status Date / Time From VICODIN Allergy Mild RASH Uncoded 06/05/23 07:11 GRAPE SODA Allergy Unknown FACIAL Uncoded 06/05/23 07:11 SWELLING Review of Systems Review of Systems: Yes all other systems are reviewed and are negative [facility] Past Medical History Attestation statement: The following information was validated with the patient. Source: old records reviewed and nursing notes reviewed Medical History Ectopic Anxiety HTN (hypertension) Social History Social History Alcohol intake: current Alcohol intake frequency: holidays/special occasions only Alcohol type: wine Advance Directives: No Advance Directives Information Provided: No Physical Exam ED Vital Signs: Vital Signs - 24 hr 06/05/23 07:10 Temperature 97.7 F Pulse Rate 83 Respiratory Rate 20 Blood Pressure 123/93 H Pulse Oximetry 97 Oxygen Delivery Method Room Air BMI result Body Mass Index 29.2 vss Appearance: Alert.? Oriented X3.? No acute distress.? Head: Normocephalic, atraumatic, no step-offs or deformities Eyes: Pupils equal, round and reactive to light.? ENT: Pharynx normal.??External ears normal, TMs normal bilaterally and EAC's normal. No pain with manipulation of external ears bilaterally. No mastoid tenderness. Neck: Normal inspection.? Neck supple.? CVS: Normal heart rate and rhythm.? Pulses normal.? Respiratory: No respiratory distress.? Breath sounds normal.? Abdomen: Soft and nontender.? Skin: Skin warm and dry.? Normal skin color.? Normal skin turgor.? Extremities: No lower extremity edema.? No calf ttp. 5/5 strength to bilateral upper and lower extremities Neuro: Oriented X 3.? No motor deficit.? No sensory deficit. CN 2-12 intact Medications Administered Discontinued Medications Generic Name Dose Route Start Last Admin Trade Name Freq PRN Reason Stop Dose Admin Dexamethasone Sodium Phosphate 10 mg 06/05/23 08:11 06/05/23 08:19 Dexamethasone Sod Phosphate 10 Mg/Ml Vial IVPUSH 06/05/23 08:12 10 mg ONCE ONE Administration Medical Decision Making Medical Decision Making [facility] Narrative: 07 37 year old female presents w/ sore throat X 2 days . 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 Differential Diagnosis Differential Diagnoses: The differential diagnosis associated with the presentation includes Hx and pe concerning for viral illness vs strep vs mono. 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 Labs: Lab Results 06/05/23 06/05/23 Range/Units 07:22 07:23 Influenza Type A (PCR) NEGATIVE (Negative) Influenza Type B (PCR) NEGATIVE (Negative) RSV RNA Qual (PCR) NEGATIVE (Negative) SARS-CoV-2 RNA (RT-PCR) NEGATIVE (Negative) S. pyogenes GrpA NING Negative (Negative) Prescription Management I considered prescription management with: Antibiotic and Other (prednisione ) Discharge Plan Discharge Clinical Impression: Pharyngitis Patient Disposition: Home, Self-Care Instructions: Pharyngitis (ED) Additional Instructions: Take your medications as prescribed. If you were prescribed antibiotics today, it is important that you take your medication to their entirety, do not skip any doses, do not finish them early. Follow-up with your primary care provider this week. Return to the emergency department with new or worsening symptoms. Such as fevers, chills, chest pain, shortness of breath, nausea, vomiting, dizziness, headache, vision changes, lethargy In case of emergency call 911 Prescriptions: New amoxicillin-pot clavulanate 875-125 mg tablet 1 tab PO BID 7 Days Qty: 14 0RF prednisone 20 mg tablet 20 mg PO DAILY 5 Days Qty: 5 0RF No Action prednisone 20 mg tablet 20 mg PO BID Qty: 10 0RF azithromycin [Zithromax Z-Osman] 250 mg tablet See Rx Instructions .ROUTE .COMPLEX Qty: 6 0RF Rx Instructions: take 500 mg today (day 1), then 250 mg for 4 days (days 2-5) albuterol sulfate [ProAir HFA] 90 mcg/actuation HFA aerosol inhaler 1 inh inhalation QID PRN (Reason: shortness of breath or wheezing) Qty: 8.5 0RF amoxicillin-pot clavulanate [Augmentin] 875-125 mg tablet 1 tab PO Q12H 10 Days Qty: 20 0RF naproxen 500 mg tablet 500 mg PO BID PRN (Reason: pain) Qty: 20 0RF amoxicillin 500 mg tablet 500 mg PO Q12H 10 Days Qty: 20 0RF ferrous sulfate 325 mg (65 mg iron) tablet 325 mg PO DAILY Qty: 30 3RF Referrals: Physician,None [Primary Care Provider] - 2 days Stand Alone Forms: Work/School Release Print Language: Kinyarwanda
[2023-06-05 07:10] VITALS: BP 123/93; PULSE 83; RESP 20; TEMP 36.5; O2SAT 97; BMI 29.2
[2023-06-05 07:42] LABS: IDNOW Serial# 6674DD1D; Strep A Nucleic Acid Negative (Negative)
[2023-06-05] MEDS: dexAMETHasone sod phosphate 10 MG/ML VIAL IVPUSH (08:19)
[2023-06-05 09:19] LABS: Influenza A PCR NEGATIVE (Negative); Influenza B PCR NEGATIVE (Negative); Resp Syncy Virus RNA Qual PCR NEGATIVE (Negative); SARS COV2 PCR INHOUSE NEGATIVE (Negative)
--- NOTE | 2023-06-05 10:00 | PC.NURSE ---
PT RESULTS WERE REVIEWED WITH THE PATIENT. PLAN IS FOR DISCHARGE HOME WITH STEROID AND ANTIBIOTICS, WORK NOTE PROVIDED
[2023-06-05 10:20] LABS: Monotest Negative (Negative)
== END 2023-06-05 10:01 | disposition home or self-care (01) ==
PROVIDERS: Physician Assistant; Emergency Provider Emergency Medicine
DX: J02.9 Acute pharyngitis, unspecified (principal); I10 Essential (primary) hypertension; Z03.818 Encounter for observation for suspected exposure to other biological agents ruled out
CPT/HCPCS: 0241U; 86308; 87651; 99281; 99283; J1100

== ENCOUNTER 2023-09-25 20:39 | Emergency (ER) | payer SELFPAY ==
[2023-09-25 21:00] VITALS: BP 142/94; PULSE 80; RESP 20; TEMP 36.7; O2SAT 98; BMI 29.3
--- NOTE | 2023-09-25 22:35 | ED_ITS ---
HPI - URI/Sore Throat General Chief Complaint: Upper Respiratory Symptoms Stated Complaint: sinus infection? Time Seen by Provider: 09/25/23 22:22 Source: patient Mode of arrival: ambulatory Limitations: no limitations History of Present Illness ED Provider: TREY SINGH Narrative: 38 yo female with PMH of anxiety, HTN, sinusitis presents with c/o itchy throat, sinus congestion, feeling run down since Monday. 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 MD elicited complaint: sore throat, rhinorrhea and sinus pain Onset (ago): day(s) (Monday) Consistency: intermittent Severity: mild Description of mucous: clear Able to tolerate fluids by mouth: Yes Exacerbating factors: leaning forward Relieving factors: nothing Context: sick contacts (was at a large ) Associated symptoms: denies other symptoms Treatments prior to arrival: none Related Data Previous Rx's ?Medication ?Instructions ?Recorded albuterol sulfate 90 mcg/actuation 1 inh inhalation QID PRN shortness 06/18/20 aerosol inhaler (ProAir HFA) of breath or wheezing #8.5 grams azithromycin 250 mg tablet See Rx Instructions PO .COMPLEX #6 06/18/20 (Zithromax Z-Osman) tabs prednisone 20 mg tablet 20 mg PO BID #10 tabs 06/18/20 amoxicillin 875 mg-potassium 1 tab PO Q12H 10 days #20 tabs 12/06/20 clavulanate 125 mg tablet (Augmentin) naproxen 500 mg tablet 500 mg PO BID PRN pain #20 tabs 12/06/20 amoxicillin 500 mg tablet 500 mg PO Q12H 10 days #20 tabs 12/16/21 ferrous sulfate 325 mg (65 mg 325 mg PO DAILY #30 tabs 03/24/22 iron) tablet amoxicillin 875 mg-potassium 1 tab PO BID 7 days #14 tabs 06/05/23 clavulanate 125 mg tablet prednisone 20 mg tablet 20 mg PO DAILY 5 days #5 tabs 06/05/23 Allergies Allergy/AdvReac Type Severity Reaction Status Date / Time From VICODIN Allergy Mild RASH Uncoded 09/25/23 21:03 GRAPE SODA Allergy Unknown FACIAL Uncoded 09/25/23 21:03 SWELLING Review of Systems Review of Systems: Constitutional : No Fever, No Chills, pos Fatigue ENT/Mouth : pos sore throat, pos Rhinorrhea Eyes: No Eye Pain, No Swelling, No Redness Cardiovascular : No Chest Pain, No SOB, No Dyspnea on Exertion Respiratory : No Cough, No Sputum Gastrointestinal : No Nausea, No Vomiting, No Diarrhea, No abdominal Pain Musculoskeletal : No joint pain, No Myalgias, No Joint Swelling Skin : No Skin Lesions, No rash Neuro : No Weakness, No Numbness, No Dizziness, no Headache All other systems reviewed and are negative [facility] Past Medical History Attestation statement: The following information was validated with the patient. Source: old records reviewed Medical History Ectopic Anxiety HTN (hypertension) Social History Social History Alcohol intake: current Alcohol intake frequency: holidays/special occasions only Alcohol type: wine Advance Directives: No Advance Directives Information Provided: No Physical Exam Vital Signs: Vital Signs: Last Vital Signs Temp 98.1 F 09/25/23 21:00 Pulse 80 09/25/23 21:00 Resp 20 09/25/23 21:00 BP 142/94 H 09/25/23 21:00 Pulse Ox 98 09/25/23 21:00 O2 Del Method Room Air 09/25/23 21:00 BMI result Body Mass Index 29.3 Appearance: Alert. Oriented X3. No acute distress. Eyes: Pupils equal, round and reactive to light. ENT: Pharynx normal. Neck: Normal inspection. Neck supple. CVS: Normal heart rate and rhythm. Pulses normal. Respiratory: No respiratory distress. Breath sounds normal. Abdomen: Soft Skin: Skin warm and dry. Normal skin color. Extremities: No lower extremity edema. Neuro: Oriented X 3. No motor deficit. No sensory deficit. Course Course Course Narrative: COVID 19 she is not vaccinated it is her 4th time getting covid Medical Decision Making Medical Decision Making MDM Narrative: 38 yo female with PMH of anxiety, HTN, sinusitis presents with c/o itchy throat, sinus congestion and feeling run down - no fevers, chest pain, dyspnea. 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 Differential Diagnosis Differential Diagnoses: The differential diagnosis associated with the presentation includes sinusitis, viral syndrome Admission/Observation Consideration of admission/observation: Escalation of care including admission/observation considered not toxic can be managed as outpatient, no hypoxia Lab Data MDM Lab Attestation statement: I reviewed the patient's lab results. Labs: Lab Results 09/25/23 Range/Units 21:05 Influenza Type A (PCR) NEGATIVE (Negative) Influenza Type B (PCR) NEGATIVE (Negative) RSV RNA Qual (PCR) NEGATIVE (Negative) SARS-CoV-2 RNA (RT-PCR) POSITIVE A (Negative) External Record Review External record reviewed: Office record Prescription Management I considered prescription management with: Antiviral declines paxlovid Discharge Plan Discharge Clinical Impression: COVID-19 Patient Disposition: Home, Self-Care Instructions: COVID-19 (Coronavirus Disease 2019) (ED) Additional Instructions: return for worsening symptoms such as chest pain, shortness of breath that is affecting your day to day activities. you should be wearing a mask until Monday. Prescriptions: No Action prednisone 20 mg tablet 20 mg PO BID Qty: 10 0RF azithromycin [Zithromax Z-Osman] 250 mg tablet See Rx Instructions .ROUTE .COMPLEX Qty: 6 0RF Rx Instructions: take 500 mg today (day 1), then 250 mg for 4 days (days 2-5) albuterol sulfate [ProAir HFA] 90 mcg/actuation HFA aerosol inhaler 1 inh inhalation QID PRN (Reason: shortness of breath or wheezing) Qty: 8.5 0RF amoxicillin-pot clavulanate [Augmentin] 875-125 mg tablet 1 tab PO Q12H 10 Days Qty: 20 0RF naproxen 500 mg tablet 500 mg PO BID PRN (Reason: pain) Qty: 20 0RF amoxicillin 500 mg tablet 500 mg PO Q12H 10 Days Qty: 20 0RF ferrous sulfate 325 mg (65 mg iron) tablet 325 mg PO DAILY Qty: 30 3RF amoxicillin-pot clavulanate 875-125 mg tablet 1 tab PO BID 7 Days Qty: 14 0RF prednisone 20 mg tablet 20 mg PO DAILY 5 Days Qty: 5 0RF Stand Alone Forms: Work/School Release Print Language: Bengali
[2023-09-25 22:40] LABS: Influenza A PCR NEGATIVE (Negative); Influenza B PCR NEGATIVE (Negative); Resp Syncy Virus RNA Qual PCR NEGATIVE (Negative); SARS COV2 PCR INHOUSE POSITIVE (Negative)
[2023-09-25 23:47] VITALS: BP 131/85; PULSE 76; RESP 16; TEMP 36.6; O2SAT 99
[2023-09-25] MEDS: hydroCHLOROthiazide 25 MG TABLET PO (23:47)
[2023-09-26] VITALS: BP 131/85; PULSE 76; RESP 16; TEMP 36.6; O2SAT 99
== END 2023-09-26 | disposition home or self-care (01) ==
PROVIDERS: Emergency Provider Emergency Medicine
DX: U07.1 COVID-19 (principal)
CPT/HCPCS: 0241U; 99283; 99284

== ENCOUNTER 2024-04-18 22:25 | Emergency (ER) | payer MEDICAID, SELFPAY ==
[2024-04-18 22:28] VITALS: BP 117/86; PULSE 107; RESP 20; TEMP 36.5; O2SAT 96; BMI 29.8
[2024-04-18 22:59] LABS: IDNOW Serial# 6674DD1D; Strep A Nucleic Acid Negative (Negative)
[2024-04-18 23:30] LABS: Influenza A PCR NEGATIVE (Negative); Influenza B PCR NEGATIVE (Negative); Resp Syncy Virus RNA Qual PCR NEGATIVE (Negative); SARS COV2 PCR INHOUSE NEGATIVE (Negative)
--- OUTSIDE RECORDS SUMMARY | 2024-04-18 23:46 | XMS_ITS | Encounter Summary ---
Author Organization [employer] Address [address] [place] [address] Care Team Providers Care Film Coater Name Role Phone Jeannie Figueredo MD Primary Care Provider [phone] Reason for Visit * Reason Comments Med Refill Encounter Details Date Type Department Care Team ([facility] st Contact Info) Description 06/12/2022 Refill [facility] [address] [place] [address] Jeannie Figueredo MD [address], [place] [id number] Social History Tobacco Use Types Packs/Day Years Used Date Smoking Tobacco: Never Assessed Comments Unknown Sex and Gender Information Value Date Recorded Sex Assigned at Female 12/27/2021 10:15 AM EDT Legal Sex Female 10:15 AM EDT Gender Identity Choose not to disclose 10:15 AM EDT Sexual Orientation Choose not to disclose 2021 10:15 AM EDT documented as of this encounter Plan of Treatment Not on file documented as of this encounter Visit Diagnoses Not on filedocumented in this encounter Care Teams Film Coater Relationship Specialty Start Date End Date Jeannie Figueredo MD [address] [place] [address] PCP - General Family Medicine 08/14/13 documented as of this encounter
--- NOTE | 2024-04-19 01:44 | ED.GENADULT ---
HPI - General Adult General Chief complaint: Upper Respiratory Symptoms Stated complaint: sore throat Time Seen by Provider: 04/19/24 01:02 Source: patient, RN notes reviewed and old records reviewed Mode of arrival: ambulatory Limitations: no limitations History of Present Illness ED Provider: Ashok SINGH narrative: [age] year old female presents for evaluation of a sore throat. Her symptoms started last night She reports associated body aches. She reports white spots on her tonsil. She states that she gets pharyngitis about once per year but never test positive for strep Related Data Previous Rx's ?Medication ?Instructions ?Recorded albuterol sulfate 90 mcg/actuation 1 inh inhalation QID PRN shortness 06/18/20 aerosol inhaler (ProAir HFA) of breath or wheezing #8.5 grams azithromycin 250 mg tablet See Rx Instructions PO .COMPLEX #6 06/18/20 (Zithromax Z-Osman) tabs prednisone 20 mg tablet 20 mg PO BID #10 tabs 06/18/20 amoxicillin 875 mg-potassium 1 tab PO Q12H 10 days #20 tabs 12/06/20 clavulanate 125 mg tablet (Augmentin) naproxen 500 mg tablet 500 mg PO BID PRN pain #20 tabs 12/06/20 amoxicillin 500 mg tablet 500 mg PO Q12H 10 days #20 tabs 12/16/21 ferrous sulfate 325 mg (65 mg 325 mg PO DAILY #30 tabs 03/24/22 iron) tablet amoxicillin 875 mg-potassium 1 tab PO BID 7 days #14 tabs 06/05/23 clavulanate 125 mg tablet prednisone 20 mg tablet 20 mg PO DAILY 5 days #5 tabs 06/05/23 amoxicillin 875 mg-potassium 1 tab PO Q12H #28 tabs 04/19/24 clavulanate 125 mg tablet ibuprofen 600 mg tablet 600 mg PO Q6H PRN pain #20 tabs 04/19/24 Allergies Allergy/AdvReac Type Severity Reaction Status Date / Time From VICODIN Allergy Mild RASH Uncoded 04/18/24 22:31 GRAPE SODA Allergy Unknown FACIAL Uncoded 04/18/24 22:31 SWELLING Review of Systems Constitutional: Constitutional: Reports body ache(s), Reports chills, Reports fever(s) and Denies frequent falls Eyes: Eyes: Denies exophthalmos and Denies floaters ENT: Denies vertigo, Denies dizziness, Reports sore throat, Denies throat swelling and Denies tongue swelling Cardiovascular: Cardiovascular: Denies chest pain and Denies dyspnea Respiratory: Respiratory: Denies cough and Denies dyspnea Gastrointestinal: Gastrointestinal: Denies abdominal pain, Denies nausea and Denies vomiting Musculoskeletal: Musculoskeletal: Denies back pain Integumentary/Breasts: Skin/Breast: Denies rash Neurologic: Denies vertigo, Denies dizziness and Denies frequent falls Allergic/Immunologic: Allergic/Immunologic: Denies throat swelling and Denies tongue swelling PMFSH Past Medical History Medical History Ectopic Anxiety HTN (hypertension) Social History Social History Alcohol intake: current Alcohol intake frequency: holidays/special occasions only Alcohol type: wine Advance Directives: No Physical Exam ED Vital Signs: Vital Signs - 24 hr 04/18/24 22:28 Temperature 97.7 F Pulse Rate 107 H Respiratory Rate 20 Blood Pressure 117/86 Pulse Oximetry 96 Oxygen Delivery Method Room Air BMI result Body Mass Index 29.8 Const General: healthy appearing, comfortable, no acute distress, alert and awake Nutritional Appearance: well nourished Orientation/consciousness: patient oriented x3 HENMT Other: Exudative pharyngitis with left-sided tonsillar hypertrophy. No tonsillar abscess Head: Yes normocephalic and Yes atraumatic Eyes Eyelids: Yes eyelids normal Conjunctivae: conjunctivae normal Sclerae: sclerae normal Corneas: corneas normal Pupils: Equal, round and reactive pupils present EOM: EOMs intact bilaterally Neck Neck: Yes full ROM Resp Effort & Inspection: normal respiratory effort, able to speak in complete sentences and not labored Skin General skin exam: elasticity normal Neuro General: patient oriented x3 Cranial nerves: Yes Equal, round and reactive pupils present and Yes Bilaterally intact EOM present Cognition (Neuro): normal cognition Extrem Other: Moving all extremities well without any obvious deformities Medical Decision Making Medical Decision Making MDM Narrative: 38-year-old female presents for evaluation of exudative pharyngitis, she tested negative for influenza, COVID-19, RSV, strep pharyngitis. However given that she has exudates we will treat with Augmentin b.i.d. she was given 1 dose of dexamethasone given the edema. There was no evidence of airway compromise or abscess Differential Diagnosis Differential Diagnoses: The differential diagnosis associated with the presentation includes Strep pharyngitis Exudative pharyngitis Upper respiratory infection Viral syndrome Lab Data Labs: Lab Results 04/18/24 Range/Units 22:41 Influenza Type A (PCR) NEGATIVE (Negative) Influenza Type B (PCR) NEGATIVE (Negative) RSV RNA Qual (PCR) NEGATIVE (Negative) SARS-CoV-2 RNA (RT-PCR) NEGATIVE (Negative) S. pyogenes GrpA NING Negative (Negative) Discharge Plan Discharge Clinical Impression: Exudative pharyngitis Patient Disposition: Home, Self-Care Instructions: Pharyngitis (ED) Additional Instructions: Take your antibiotic twice daily. Complete the course of antibiotics. You were given a dose of steroids to reduce inflammation. Use ibuprofen as needed for pain. You may also use saltwater gargles. Drink lots of fluids Follow-up with your primary doctor, return for new or worsening symptoms Prescriptions: New amoxicillin-pot clavulanate 875-125 mg tablet 1 tab PO Q12H Qty: 28 0RF ibuprofen 600 mg tablet 600 mg PO Q6H PRN (Reason: pain) Qty: 20 0RF No Action prednisone 20 mg tablet 20 mg PO BID Qty: 10 0RF azithromycin [Zithromax Z-Osman] 250 mg tablet See Rx Instructions .ROUTE .COMPLEX Qty: 6 0RF Rx Instructions: take 500 mg today (day 1), then 250 mg for 4 days (days 2-5) albuterol sulfate [ProAir HFA] 90 mcg/actuation HFA aerosol inhaler 1 inh inhalation QID PRN (Reason: shortness of breath or wheezing) Qty: 8.5 0RF amoxicillin-pot clavulanate [Augmentin] 875-125 mg tablet 1 tab PO Q12H 10 Days Qty: 20 0RF naproxen 500 mg tablet 500 mg PO BID PRN (Reason: pain) Qty: 20 0RF amoxicillin 500 mg tablet 500 mg PO Q12H 10 Days Qty: 20 0RF ferrous sulfate 325 mg (65 mg iron) tablet 325 mg PO DAILY Qty: 30 3RF amoxicillin-pot clavulanate 875-125 mg tablet 1 tab PO BID 7 Days Qty: 14 0RF prednisone 20 mg tablet 20 mg PO DAILY 5 Days Qty: 5 0RF Stand Alone Forms: Work/School Release Print Language: Greek
[2024-04-19] MEDS: dexAMETHasone 2 MG TABLET 10 MG PO (02:04)
[2024-04-19] MEDS: Amoxicillin/Potassium Clav 875 MG TABLET PO (02:04)
[2024-04-19] MEDS: Ibuprofen 600 MG TABLET PO (02:04)
[2024-04-19 02:09] VITALS: BP 112/82; PULSE 98; RESP 16; TEMP -17.7; TEMP 0; O2SAT 98
== END 2024-04-19 02:10 | disposition home or self-care (01) ==
PROVIDERS: Emergency Provider Emergency Medicine Emergency Medical Services; PCP Student in an Organized Health Care Education/Training Program
DX: J02.9 Acute pharyngitis, unspecified (principal); M79.10 Myalgia, unspecified site; Z03.818 Encounter for observation for suspected exposure to other biological agents ruled out
CPT/HCPCS: 0241U; 87651; 99283; J8540

== ENCOUNTER 2024-05-09 01:41 | Emergency (ER) | payer SELFPAY ==
[2024-05-09 02:10] VITALS: BP 140/95; PULSE 92; RESP 16; TEMP 36.3; O2SAT 97
[2024-05-09] MEDS: Acetaminophen 325 MG TABLET 650 MG PO (02:19)
--- NOTE | 2024-05-09 02:21 | PC.NURSE ---
Pt medicated with Tylenol per request for 12/06 headache.
--- NOTE | 2024-05-09 06:21 | PC.NURSE ---
pt no longer visualized in room or department.
== END 2024-05-09 06:22 | disposition left against medical advice (07) ==
PROVIDERS: Emergency Provider Emergency Medicine
DX: I10 Essential (primary) hypertension (principal); R51.9 Headache, unspecified; Z53.21 Procedure and treatment not carried out due to patient leaving prior to being seen by health care provider
CPT/HCPCS: 99281; 99284